=== PATIENT | female | born 1960 | race Caucasian/White ===

== ENCOUNTER 2018-06-27 11:31 | Outpatient (CLI) | payer OTHER ==
[2018-06-27 12:34] LABS: #Basophils 0.1 thou/uL (0.0-0.2); #Eosinphils 0.1 thou/uL (0.0-0.7); #Lymphocytes 3.2 thou/uL (1.20-3.40); #Monocytes 0.6 thou/uL (0.11-0.59); #Neutrophils 5.3 thou/uL (1.40-6.50); %Eosinophils 0.9 % (0.0-10.0); %Lymphocytes 34.8 % (21.0-51.0); %Monocytes 6.5 % (0.0-10.0); %Neutrophils 56.9 % (42.0-75.0); Hemoglobin 15.6 g/dL (12.0-16.0); Mean Corpuscular HGB CONC 32.9 g/dL (32.0-36.0); Mean Corpuscular Hemoglobin 32.4 pg (27.0-31.0); Mean Corpuscular Volume 98.6 fL (78.0-98.0); Mean Platelet Volume 7.1 fL (7.4-10.4); Platelet Count 320 thou/uL (130-400); RBC Distribution Width 11.7 % (11.5-14.5); White Blood Cell (WBC) Count 9.3 thou/uL (4.8-10.8)
[2018-06-27 12:57] LABS: ALT (SGPT) 14 U/L (8-55); AST (SGOT) 18 U/L (5-34); Albumin 4.8 g/dL (3.5-5.0); Alkaline Phosphatase 89 U/L (40-150); Anion Gap 16 mmol/L (10-20); BUN (Urea Nitrogen) 12 mg/dL (9.8-20.1); Bilirubin, Total 0.2 mg/dL (0.2-1.2); Calc. Creatinine Clearance 0 mL/min (70-130); Calcium 9.8 mg/dL (7.8-10.44); Carbon Dioxide 23 mmol/L (22-29); Chloride 100 mmol/L (98-107); Estimated GFR-MDRD 83; Globulin 2.9 g/dL (2.4-3.5); Glucose 94 mg/dL (70-105); Potassium 4.3 mmol/L (3.5-5.1); Protein, Total 7.7 g/dL (6.0-8.3); Sodium 135 mmol/L (136-145)
== END 2018-06-27 11:32 | disposition home or self-care (01) ==
LOC: LABBT 11:31
PROVIDERS: ATTEND Surgery
DX: Z01.818 Encounter for other preprocedural examination (principal); K41.90 Unilateral femoral hernia, without obstruction or gangrene, not specified as recurrent
CPT/HCPCS: 80053; 85025; 93005; 93010

== ENCOUNTER 2018-07-03 06:06 | Day surgery (SDC) | payer OTHER ==
[2018-06-27 12:00] VITALS: BMI 29.0
[2018-07-03] MEDS ORDERED: CEFAZOLIN/Water 2 GM/20 ML SYRINGE ONE (06:26)
[2018-07-03] MEDS ORDERED: Lidocaine 2% PF Inj 2 ML VIAL ONE (07:01)
[2018-07-03] MEDS ORDERED: Bupivacaine/Epinephrine 0.25% 30 ML VIAL ONE (07:01)
[2018-07-03] MEDS ORDERED: Fentanyl 100 MCG/2 ML VIAL ONE (07:16)
--- NOTE | 2018-07-03 08:42 | OP ---
PREOPERATIVE DIAGNOSIS: Left inguinal hernia. SURGEON: Piter Guo M.D. PROCEDURE PERFORMED: Left inguinal hernia repair with mesh. INDICATIONS: This is a 57-year-old female, who had a painful bulge in left groin. It appeared like a femoral hernia. FINDINGS: Actually was a left direct inguinal hernia at the pubic tubercle. PROCEDURE IN DETAIL: After informed consent was obtained, the patient was taken to the operating domenic m and given general endotracheal anesthesia. She was placed in the supine position. Her left groin was prepped and draped in usual fashion. Local anesthesia infiltrated subcutaneously and deep. A tr ansversing left groin incision was performed over the bulge. Subcu divided sharply. The hernia sac was dissected out. It initially appeared it was coming from the femoral canal, continued to dissect it out, and it turned out it was coming from the internal ring.
--- NOTE | 2018-07-03 08:51 | OP ---
DATE OF PROCEDURE: 07/03/2018 PREOPERATIVE DIAGNOSIS: Left femoral hernia. SURGEON: Piter Guo M.D. PROCEDURE PERFORMED: Left inguinal hernia repair with mesh. INDICATIONS: A 57-year-old female who had a left low groin bulge that appeared to be a femoral herni a that was causing pain. FINDINGS: She actually had a direct inguinal hernia at the pubic tubercle that the sac had prolapsed down towards the thigh. PROCEDURE: After informed consent was obtained, the patient was taken to the operating room, given g eneral mask anesthesia, placed in the supine position. Groin area was prepped and draped in usual fa shion. Transverse groin incision was performed. The subcu divided sharply. The hernia sac was foun d. This was then dissected down and it was coming through the external ring. The fascia was then op ened up and a direct hernia was found. This was circumscribed and reduced. Reduction maintained wit h a plug that was placed into the preperitoneal space, sutured in place with interrupted 2-0 Prolene suture. A patch was then placed over this and tucked under the external oblique fascia, sutured to t he pubic tubercle, then the external oblique fascia closed with a running 3-0 Vicryl. Hemostasis was assured. The wound irrigated. Subcutaneous reapproximated with interrupted 3-0 Vicryl. Skin close d with a running subcuticular 4-0 Rapide. Steri-Strips applied. Sterile bandage applied. The patie nt tolerated the procedure well and was transferred to recovery in good condition. Sponge and needle count verified correct x2.
[2018-07-03] MEDS ORDERED: HYDROcodone/Acetaminophen 5/325 mg Tablet ONE (09:08)
[2018-07-03] MEDS ORDERED: PROPOFOL 200 MG/20 ML VIAL ONE (10:40)
[2018-07-03] MEDS ORDERED: Glycopyrrolate 0.2 MG/ML 5 ML SYRINGE ONE (10:40)
[2018-07-03] MEDS ORDERED: Dexamethasone 20 MG/5 ML VIAL ONE (10:40)
[2018-07-03] MEDS ORDERED: Ondansetron HCl/PF 4 MG/2 ML Vial ONE (10:40)
[2018-07-03] MEDS ORDERED: Ketorolac Tromethamine 30 MG/ML VIAL ONE (10:40)
== END 2018-07-03 10:10 | disposition home or self-care (01) ==
LOC: SDC 06:06
PROVIDERS: ATTEND Surgery
PROC: 0YU80JZ Supplement Left Femoral Region with Synthetic Substitute, Open Approach (ICD-10-PCS; principal; 2018-07-03)
PROC: 0YU60JZ Supplement Left Inguinal Region with Synthetic Substitute, Open Approach (ICD-10-PCS; principal; 2018-07-03)
DX: K41.90 Unilateral femoral hernia, without obstruction or gangrene, not specified as recurrent (principal); K40.90 Unilateral inguinal hernia, without obstruction or gangrene, not specified as recurrent; I10 Essential (primary) hypertension; Z88.5 Allergy status to narcotic agent; Z91.013 Allergy to seafood; Z79.899 Other long term (current) drug therapy
CPT/HCPCS: C1781; J1100; J1885; J2405; J2704; J3010

== ENCOUNTER 2019-03-13 09:45 | Outpatient (CLI) | payer OTHER ==
--- NOTE | 2019-03-13 10:39 | MMO ---
Bilateral MAMMO Bilat Screen [facility]. CLINICAL HISTORY: Patient is 58 years old and is seen for screening. The patient has no family history of breast cancer. The patient has no personal history of cancer. VIEWS: The views performed were: bilateral craniocaudal with tomosynthesis and bilateral mediolateral oblique with tomosynthesis. MAMMOGRAM FINDINGS: There are scattered fibroglandular densities. There are no suspicious masses, suspicious calcifications, or new areas of architectural distortion. IMPRESSION: THERE IS NO MAMMOGRAPHIC EVIDENCE OF MALIGNANCY. A ROUTINE FOLLOW-UP MAMMOGRAM IN 1 YEAR IS RECOMMENDED. THE RESULTS OF THIS EXAM WERE SENT TO THE PATIENT. ACR BI-RADS Category 1 - Negative MAMMOGRAPHY NOTE: 1. A negative mammogram report should not delay a biopsy if a dominant of clinically suspicious mass is present. 2. Approximately 10% to 15% of breast cancers are not detected by mammography. 3. Adenosis and dense breasts may obscure an underlying neoplasm.
== END 2019-03-13 09:46 | disposition home or self-care (01) ==
LOC: BICMAMMO 09:45
PROVIDERS: ATTEND Nurse Practitioner Adult Health
DX: Z12.31 Encounter for screening mammogram for malignant neoplasm of breast (principal)
CPT/HCPCS: 77063; 77067

== ENCOUNTER 2020-08-31 10:19 | Observation (INO) | payer OTHER ==
[2020-08-31 11:39] LABS: #Basophils 0.1 thou/uL (0.0-0.2); #Lymphocytes 2.8 thou/uL (1.20-3.40); #Monocytes 0.6 thou/uL (0.11-0.59); #Neutrophils 7.6 thou/uL (1.40-6.50); %Basophils 0.9 % (0.0-1.0); %Eosinophils 0.3 % (0.0-10.0); %Lymphocytes 25.5 % (21.0-51.0); %Monocytes 5.3 % (0.0-10.0); Hemoglobin 15.1 g/dL (12.0-16.0); Mean Corpuscular HGB CONC 33.7 g/dL (32.0-36.0); Mean Corpuscular Hemoglobin 32.5 pg (27.0-31.0); Mean Corpuscular Volume 96.2 fL (78.0-98.0); Mean Platelet Volume 7.1 fL (7.4-10.4); Platelet Count 301 thou/uL (130-400); RBC Distribution Width 11.8 % (11.5-14.5); Red Blood Cell (RBC) Count 4.64 mill/uL (4.20-5.40); White Blood Cell (WBC) Count 11.1 thou/uL (4.8-10.8)
[2020-08-31 12:06] LABS: ALT (SGPT) 19 U/L (8-55); AST (SGOT) 19 U/L (5-34); Albumin 4.5 g/dL (3.4-4.8); Alkaline Phosphatase 95 U/L (40-110); Anion Gap 17 mmol/L (10-20); BUN (Urea Nitrogen) 4 mg/dL (9.8-20.1); Bilirubin, Total 0.2 mg/dL (0.2-1.2); Calc. Creatinine Clearance 0 mL/min (70-130); Calcium 9.6 mg/dL (7.8-10.44); Carbon Dioxide 29 mmol/L (23-31); Chloride 96 mmol/L (98-107); Globulin 3.2 g/dL (2.4-3.5); Glucose 100 mg/dL (80-115); Potassium 3.3 mmol/L (3.5-5.1); Protein, Total 7.7 g/dL (6.0-8.3); Sodium 139 mmol/L (136-145)
[2020-08-31] MEDS ORDERED: predniSONE 20 MG TAB ONE (12:37)
[2020-08-31] MEDS ORDERED: Nitroglycerin 0.4 MG TAB 1 EACH ONE (12:37)
[2020-08-31] MEDS ORDERED: Albuterol 200 PUFF (6.7GM INHALER) ONE (12:37)
[2020-08-31] MEDS ORDERED: Aspirin Chewable 81 MG TAB ONE (12:37)
--- NOTE | 2020-08-31 13:23 | RAD ---
AP CHEST: HISTORY: Chest pain and chest pressure. FINDINGS: Lungs are clear of infiltrate. No evidence of vascular congestion. Heart size is normal. IMPRESSION: No acute process. POS: AGW
--- NOTE | 2020-08-31 14:25 | PDOC.FPRHP ---
- History of Present Illness Chief Complaint: Chest tightness History of Present Illness: Patient is a 60 year old female with a history of HTN, HLD, CARI and hypothyroidism who presents to the ED with complains of chest tightness for the past 3 days. Reports URI symptoms including runny nose, ear fullness, and cough 1 week ago, now resolved. Denies chest pain. No headache, vision changes, SOB, nausea, sweating, abdominal pain, and edema. Reports intermittent SOB and wheezing. Has been using 's inhalers at home with resolution of SOB. Never felt similar symptoms previously. Never undergone stress test. + FHx for AK: son at 39, father at 60. ED Course: In ED, patient was afebrile. Given nitro and ASA. Noted to be wheezing on exam and given provent and prednisone 60mg. - Allergies/Adverse Reactions Allergies Allergy/AdvReac Type Severity Reaction Status Date / Time codeine Allergy Emesis Verified 06/27/18 12:01 shellfish derived Allergy Verified 06/27/18 12:01 - Home Medications Medication Instructions Recorded Confirmed Type Cyclobenzaprine [Flexeril] 10 mg PO TID PRN 06/27/18 08/31/20 History Hydrochlorothiazide 25 mg PO DAILY 06/27/18 08/31/20 History traZODone HCl [Trazodone HCl] 100 mg PO ASDIR PRN 06/27/18 08/31/20 History Albuterol Sulfate [Proventil Hfa] 2 puff INH Q4H PRN 08/31/20 08/31/20 History Aspirin 81 mg PO DAILY 08/31/20 08/31/20 History Clindamycin Phosphate [Clindamycin 1 applic TOP DAILY 08/31/20 08/31/20 History Phosphate 1% Gel] Fluocinonide [Fluocinonide 0.05% 1 applic TOP BID 08/31/20 08/31/20 History Cream] Levothyroxine Sodium [Euthyrox] 125 mcg PO DAILY 08/31/20 08/31/20 History Multivitamin 1 each PO DAILY 08/31/20 08/31/20 History Ubidecarenone [CoQ-10] 200 mg PO DAILY 08/31/20 08/31/20 History - History PMHx: HTN, HLD, CARI, hypothyroidism PSHx: Neck surgery, inguinal hernia FHx: [place] in father at 60, son at 39. Denies hx of HTN, DM. Social: Smokes 1.5-2 ppd since age 14. ETOH use socially. Denies drug use. - Review of Systems General: denies: fever/chills, fatigue Eyes: denies: eye pain, vision changes ENT: denies: nasal congestion, rhinorrhea Respiratory: denies: cough, shortness of breath Cardiovascular: denies: chest pain, palpitation, edema Gastrointestinal: denies: nausea, vomiting, abdominal pain Genitourinary: denies: dysuria, polyuria Skin: denies: rashes, jaundice Musculoskeletal: denies: pain, stiffness Neurological: denies: numbness, weakness Psychological: denies: anxiety, depression - Vital signs BP: [165/101] HR: [82] RR: [20] Tmax: [98.5F] Pox: [97]% on [RA] Wt: [74.661kg] - Physical Exam Constitutional: NAD, awake, alert and oriented HEENT: normocephalic and atraumatic, MMM Neck: FROM, trachea midline Chest: no-tender to palpation Heart: RRR, normal S1/S2, no edema Lungs: no respiratory distress, good air movement -Lungs: Expiratory wheezing heard throughout lung bases Abdomen: soft, non-tender, bowel sounds present Musculoskeletal: ROM grossly normal Neurological: no focal deficit Skin: no rash/lesions Heme/Lymphatic: no unusual bruising or bleeding Psychiatric: normal mood and affect FMR H&P: Results - Labs Result Diagrams: 08/31/20 11:23 08/31/20 11:23 Lab results: WBC 11.1 thou/uL (4.8-10.8) H 08/31/20 11:23 Hgb 15.1 g/dL (12.0-16.0) 08/31/20 11:23 Hct 44.7 % (36.0-47.0) 08/31/20 11:23 MCV 96.2 fL (78.0-98.0) 08/31/20 11:23 Plt Count 301 thou/uL (130-400) 08/31/20 11:23 Neutrophils % 68.0 % (42.0-75.0) 08/31/20 11:23 Sodium 139 mmol/L (136-145) 08/31/20 11:23 Potassium 3.3 mmol/L (3.5-5.1) L 08/31/20 11:23 Chloride 96 mmol/L (98-107) L 08/31/20 11:23 Carbon Dioxide 29 mmol/L (23-31) 08/31/20 11:23 BUN 4 mg/dL (9.8-20.1) L 08/31/20 11:23 Creatinine 0.65 mg/dL (0.6-1.1) 08/31/20 11:23 Glucose 100 mg/dL (80-115) 08/31/20 11:23 Calcium 9.6 mg/dL (7.8-10.44) 08/31/20 11:23 Total Bilirubin 0.2 mg/dL (0.2-1.2) 08/31/20 11:23 AST 19 U/L (5-34) 08/31/20 11:23 ALT 19 U/L (8-55) 08/31/20 11:23 Alkaline Phosphatase 95 U/L (40-110) 08/31/20 11:23 Serum Total Protein 7.7 g/dL (6.0-8.3) 08/31/20 11:23 Albumin 4.5 g/dL (3.4-4.8) 08/31/20 11:23 Lipase 14 U/L (8-78) 08/31/20 11:23 - EKG Interpretation EKG: EKG showed NSR FMR H&P: A/P - Plan Atypical chest pain Chest tightness could be cardiac vs. undiagnosed COPD. Trop < 0.01. EKG showed no ST segment changes. CXR negative. Given nitro and ASA in ED. -Heart score 4. -Admit to tele obs -Risk stratification labs of TSH, mag, lipid panel, A1C -EKG PRN for CP -NPO at midnight for stress test in am -Continue home ASA 81mg daily Wheezing Likely 2/2 undiagnosed COPD. CXR negative for consolidation. -Albuterol neb PRN -Outpatient PFTs to formally establish the diagnosis Tobacco use -Nicotine patch -Encourage cessation HTN HLD Hypothyroidism -Continue home meds PCP: Dr. Fuchs Code: FULL VTE ppx: SCDs Dispo: admit to tele obs. Expected LOS < 48 hours FMR H&P: Upper Level - Plan Date/Time: 08/31/20 1425 IKate, PGY2, have evaluated this patient and agree with findings/plan as outlined by materials intern resident. Pertinent changes/additions are listed here. 60 yo F w/ PMHx of HTN, HLD, hypothyroidism starting have chest pain 3 days ago. Pain is substernal and feels like a tightness. It does not radiate. She also has shortness of breath. She has been taking her 's inhalers which have helped some, but pain still would return. She is a long-time smoker since age 14, 1-2 ppd. Denies ever having this type of pain before. No N/V, diaphoresis. VS: BP: 165/101, MAP: 122, Pulse: 82, Resp: 23, Temp: 98.5 (Oral), Pain: 4, O2 sat: 97 on (Room Air), Time: 08/31/2020 11:07. PEx: Gen: NAD Lungs: wheezing diffusely, no rhonchi or rales, nonlabored breathing CV: RRR, no murmur Extremities: warm, well perfused, pulses 2+ b/l Psych: normal mood, congruent affect, good sense of humor A/P: ACS rule out Atypical chest pain - HEART of 4 - Will order TSH, Mg, Phos, A1C, and FLP to risk stratify - EKG NSR - continuous telemetry overnight - stress test in the AM. Wheezing Most likely 2/2 COPD - CXR normal with mildly hyperinflated lung justin in patient with heavy smoking history - could possibly be new onset COPD caused by allergies or mild URI - DuoNebs q4hr - prednisone may be continued along w/ azithromycin to empirically treat - Pt does not appear to have symptoms consistent w/ heart failure - recommend outpatient PFTs to formally establish the diagnosis HTN HLD Hypothyroidism - continue home meds - does not take any beta-blockers History of heavy tobacco use - encourage cessation Code: FULL VTE ppx: SCDs, low risk GI ppx: none IVF: none Dispo: tele, obs. NPO at midnight for stress test in the AM. Addendum - Attending - Attending Attestation Date/Time: 08/31/20 869 I personally evaluated the patient and discussed the management with Dr. Fransisco james/Arron. H&P repeated by me. I agree with the History, Examination, Assessment and Plan documented above with any addition or exceptions noted below. CP R/O AK- multiple cardiac risk factors including tobacco abuse, fam hx, h/o HTN and HLD- stress test in am. Tobacco abuse- counseling Concern for undiagnosed COPD- prn albuterol and f/u for PFTs.
[2020-08-31 14:31] LABS: Troponin I 0.012 ng/mL (< 0.028)
[2020-08-31] MEDS ORDERED: Ondansetron ODT 4 MG TAB PO PRN (14:31)
[2020-08-31] MEDS ORDERED: Ondansetron PF 4 MG/2 ML Vial IVP PRN (14:31)
[2020-08-31] MEDS ORDERED: Nitroglycerin 0.4 MG TAB (25 Tab Bottle) SL PRN (14:31)
[2020-08-31] MEDS ORDERED: Acetaminophen 325 MG TAB PO PRN (14:31)
[2020-08-31] MEDS ORDERED: Nicotine 21 MG PATCH TD SCH (14:45)
[2020-08-31] MEDS ORDERED: traZODone HCl 50 MG TAB PO PRN (14:52)
[2020-08-31 15:06] LABS: Hemoglobin A1c 5.5 % (4.0-6.0)
[2020-08-31] MEDS ORDERED: Albuterol Sulfate 1.25 MG/3 ML NEB NEB PRN (16:23)
[2020-08-31 17:27] VITALS: BMI 30.1
[2020-08-31 18:20] LABS: Troponin I Less than 0.010 ng/mL (< 0.028)
[2020-08-31] MEDS ORDERED: Potassium Chloride 20 MEQ TAB PO SCH (20:00)
[2020-08-31 22:34] LABS: SARS-CoV-2 MS2 Positive; SARS-CoV-2 N Gene Negative; SARS-CoV-2 S Gene Negative; SARS-CoV-2 by NAA Not Detected (NotDetected); SARS-CoV-2 orf1ab Negative
[2020-09-01] MEDS ORDERED: Levothyroxine Sodium 125 MCG TAB PO SCH (06:00)
--- NOTE | 2020-09-01 06:04 | PDOC.FM ---
- Subjective Subjective: Patient is resting comfortably in bed. No events overnight. Reports that her chest pain is almost completely resolved. She states her shortness of breath is improved as well. Notes that when she lays down her shortness of breath gets worse. States that when she is active it gets worse as well. Denies fever/chills, cough. - Objective MAR Reviewed: Yes Vital Signs & Weight: Vital Signs (12 hours) Temp Pulse Resp BP Pulse Ox 09/01/20 04:00 98.2 F 90 140/84 93 L 08/31/20 20:00 97.8 F 90 20 155/87 H 93 L Weight Weight 74.661 kg I&O: 08/30/20 08/31/20 09/01/20 06:59 06:59 06:59 Intake Total 1440 Balance 1440 Result Diagrams: 08/31/20 11:23 08/31/20 11:23 Phys Exam - Physical Examination Constitutional: NAD HEENT: PERRLA, moist MMs expiratory wheeze throughout lung bases Cardiovascular: RRR, no significant murmur no chest wall TTP Gastrointestinal: soft, non-tender, positive bowel sounds Musculoskeletal: no edema Neurological: non-focal, moves all 4 limbs Psychiatric: normal affect, A&O x 3 Skin: no rash Dx/Plan - Plan Plan: Atypical chest pain, R/o ACS Chest tightness likely 2/2 new onset COPD with mild exacerbation EKG showed no ST segment changes. CXR negative. Given nitro and ASA in ED. Heart score 4. Trops neg x3 TSH 1.2, a1c 5.5, Chest tightness improved with duonebs -pending mag, lipid panel -stress test this am -Continue home ASA 81mg daily Wheezing Most likely 2/2 COPD CXR normal with mildly hyperinflated lung justin in patient with heavy smoking history Could possibly be new onset COPD caused by allergies, reported post nasal drip x 1 week CHF unlikely, patient does report orthopnea, but no edema, stress will show EF - DuoNebs q4hr - Continue prednisone for 5 day total course - recommend outpatient PFTs to formally establish the diagnosis Tobacco use -Nicotine patch -Encourage cessation HTN - continue home meds HLD - continue home meds Hypothyroidism -Continue home meds PCP: Dr. Fuchs Code: FULL VTE ppx: SCDs Dispo: admit to tele obs. Expected LOS < 48 hours Addendum - Attending - Attending Attestation Date/Time: 09/01/20 1406 I personally evaluated the patient and discussed the management with Dr. Parekh. I agree with the History, Examination, Assessment and Plan documented above with any addition or exceptions noted below. Patient here for suspected COPD with mild exacerbation and chest pain. She underwent stress testing this morning. Continue treatment for COPD. Hopeful d/c with normal stress test later today.
[2020-09-01] MEDS ORDERED: predniSONE 20 MG TAB PO SCH (09:00)
[2020-09-01] MEDS ORDERED: Enoxaparin Sodium 40 MG/0.4 ML SYRINGE SC SCH (09:00)
[2020-09-01] MEDS ORDERED: Hydrochlorothiazide 25 MG TAB PO SCH (09:00)
[2020-09-01] MEDS ORDERED: Aspirin 81 mg Enteric Coated Tablet PO SCH (09:00)
[2020-09-01 10:47] VITALS: BP 167/87; TEMP 98.2
--- NOTE | 2020-09-01 10:47 | NM ---
EXAM: CARDIAC SPECT HISTORY: Chest pain, acute coronary syndrome, hypertension, dyslipidemia, smoker TECHNIQUE: A myocardial perfusion scan was performed using the single isotope 1 day protocol with lorraine hnetium 99m sestamibi. [10 mCi] was injected intravenously for the rest exam followed by 30 mCi for the stress study. Pharmacologic stress with Lexiscan was monitored and interpreted by JUANA [place] FINDINGS: There is a small fixed defect in the distal anteroseptal wall. No reversible defects are se en. Gated SPECT LVEF: 77% Wall motion exam: Normal IMPRESSION: No evidence of reversible ischemia
[2020-09-01] MEDS ORDERED: Regadenoson 0.4 MG/5 ML SYRINGE ONE (11:33)
[2020-09-01 12:10] LABS: Anion Gap 15 mmol/L (10-20); BUN (Urea Nitrogen) 12 mg/dL (9.8-20.1); Calc. Creatinine Clearance 100 mL/min (70-130); Calcium 9.6 mg/dL (7.8-10.44); Carbon Dioxide 29 mmol/L (23-31); Cardiac Risk 4.1 (Less than 4.5); Chloride 100 mmol/L (98-107); Cholesterol 241 mg/dl (< 200 Desired); Glucose 112 mg/dL (80-115); HDL Cholesterol 59 mg/dL (>60 Neg Risk); LDL Cholesterol, Calculated 132 mg/dL; Magnesium 1.9 mg/dL (1.6-2.6); Potassium 3.8 mmol/L (3.5-5.1); Sodium 140 mmol/L (136-145); Triglycerides 251 mg/dL (Less than 150)
[2020-09-02] MEDS ORDERED: predniSONE 20 MG TAB PO SCH (08:00)
--- NOTE | 2020-09-02 13:23 | DIS ---
DATE OF ADMISSION: 08/31/2020 DATE OF DISCHARGE: 09/01/2020 DISCHARGE ATTENDING: Zach Carrillo MD CONSULTS: None. PROCEDURES: Stress test nuclear medicine. Impression: No evidence of reversible ischemia. EF 77%. PRIMARY DIAGNOSIS: Atypical chest pain, suspected due to new-onset chronic obstructive pulmonary disease with mild exacerbation. SECONDARY DIAGNOSES: Tobacco use, hypertension, hyperlipidemia, hypothyroidism. DISCHARGE MEDICATIONS: 1. Symbicort 10.2 g inhaled daily for 30 days. 2. Atorvastatin 40 mg p.o. daily for 30 days. 3. Prednisone 40 mg p.o. q.a.m. with meals for 3 days. 4. Albuterol 2 puffs inhaled q.4 hours p.r.n. 5. Aspirin 81 mg p.o. daily. 6. Clindamycin one application topical daily. 7. Flexeril 10 mg p.o. t.i.d. 8. Fluocinonide one application topical b.i.d. 9. Hydrochlorothiazide 25 mg p.o. daily. 10. Levothyroxine sodium 125 mcg p.o. daily. 11. Multivitamin one each p.o. daily. 12. Trazodone 100 mg p.o. as directed. 13. Ubidecarenone 200 mg p.o. daily. DISCONTINUED MEDICATIONS: None. HISTORY OF PRESENT ILLNESS/HOSPITAL COURSE: A 60-year-old female, presented to the ED with chest tightness for the past three days and URI symptoms, no chest pain, intermittent shortness of breath and wheezing. Had been using 's inhaler at home, which had helped resolve her shortness of breath. Positive family history for RI, son at 39, father at 60. Given nitroglycerin and aspirin in the ED. Wheezing on exam. Chest x-ray normal with mildly hyperinflated lung justin. The patient has a heavy smoking history. EKG showed no ST changes. Chest tightness improved with DuoNeb. The patient was started on prednisone. Had a stress test that was normal, showed no ischemia, and the patient was discharged in stable condition with recommended outpatient followup for PFTs and lung cancer screening. DISPOSITION: Stable. DISCHARGE INSTRUCTIONS: 1. Location: Home. 2. Diet: Regular. 3. Activity: Ad jeremie. 4. Follow up with your primary care physician in 7 to 14 days. Job ID: [id number]
== END 2020-09-01 13:45 | disposition home or self-care (01) ==
LOC: ERS 10:19 → ERHOLD 13:12 → 2NO 17:38
PROVIDERS: ADMIT Family Medicine; ATTEND Family Medicine
DX: R07.89 Other chest pain (principal); R06.2 Wheezing; I10 Essential (primary) hypertension; E78.5 Hyperlipidemia, unspecified; E03.9 Hypothyroidism, unspecified; F41.1 Generalized anxiety disorder; F17.210 Nicotine dependence, cigarettes, uncomplicated; Z79.82 Long term (current) use of aspirin; Z79.899 Other long term (current) drug therapy; Z88.5 Allergy status to narcotic agent; Z91.013 Allergy to seafood; Z20.828 Contact with and (suspected) exposure to other viral communicable diseases
CPT/HCPCS: 36415; 71045; 78452; 80048; 80053; 80061; 83036; 83690; 83735; 84443; 84484; 85025; 85379; 87635; 93005; 93017; 94760; A9500; G0378; J2785; J7512; U0003

== ENCOUNTER 2022-05-25 12:16 | Outpatient (CLI) | payer OTHER | END 2022-05-25 12:17 | disposition home or self-care (01) | LOC: BICMAMMO 12:16 | PROVIDERS: ATTEND Family Medicine | DX: Z12.31 Encounter for screening mammogram for malignant neoplasm of breast (principal) | CPT/HCPCS: 77063; 77067 ==

== ENCOUNTER 2022-07-19 11:24 | Inpatient (IN) | payer OTHER ==
[2022-07-19 12:10] LABS: #Eosinphils 0.1 thou/uL (0.0-0.7); #Lymphocytes 2.7 thou/uL (1.20-3.40); #Monocytes 0.7 thou/uL (0.11-0.59); #Neutrophils 9.1 thou/uL (1.40-6.50); %Basophils 0.2 % (0.0-1.0); %Eosinophils 0.6 % (0.0-10.0); %Lymphocytes 21.6 % (21.0-51.0); %Monocytes 5.8 % (0.0-10.0); %Neutrophils 71.9 % (42.0-75.0); Hemoglobin 15.5 g/dL (12.0-16.0); Mean Corpuscular HGB CONC 32.5 g/dL (32.0-36.0); Mean Corpuscular Hemoglobin 32.2 pg (27.0-31.0); Mean Corpuscular Volume 99.2 fL (78.0-98.0); Mean Platelet Volume 7.6 fL (7.4-10.4); Platelet Count 289 thou/uL (130-400); RBC Distribution Width 11.6 % (11.5-14.5); Red Blood Cell (RBC) Count 4.83 mill/uL (4.20-5.40); White Blood Cell (WBC) Count 12.6 thou/uL (4.8-10.8)
[2022-07-19 12:37] LABS: ALT (SGPT) 23 U/L (8-55); AST (SGOT) 22 U/L (5-34); Albumin 4.5 g/dL (3.4-4.8); Alkaline Phosphatase 99 U/L (40-110); Anion Gap 14 mmol/L (10-20); BUN (Urea Nitrogen) 10 mg/dL (9.8-20.1); Bilirubin, Total 0.2 mg/dL (0.2-1.2); Calc. Creatinine Clearance 0 mL/min (70-130); Carbon Dioxide 31 mmol/L (23-31); Chloride 98 mmol/L (98-107); Estimated GFR 92; Glucose 113 mg/dL (80-115); Potassium 3.9 mmol/L (3.5-5.1); Protein, Total 7.5 g/dL (5.8-8.1); Sodium 139 mmol/L (136-145)
[2022-07-19] MEDS ORDERED: Albuterol Sulfate 2.5 mg/3 ml Neb ONE (13:14)
[2022-07-19] MEDS ORDERED: Aspirin 325 MG TAB ONE (13:18)
[2022-07-19] MEDS ORDERED: Diazepam 10 MG/2 ML SYRINGE IVP SCH (18:09)
[2022-07-19] MEDS ORDERED: Lorazepam 2 MG/ML VIAL IM PRN (18:13)
[2022-07-19] MEDS ORDERED: Ondansetron ODT 4 MG TAB PO PRN (18:13)
[2022-07-19] MEDS ORDERED: Diazepam 5 MG TAB PO PRN (18:43)
[2022-07-19] MEDS ORDERED: Folic Acid 1 MG TAB PO SCH (18:45)
[2022-07-19] MEDS ORDERED: Multivit, Therapeutic 1 TAB PO SCH (18:45)
[2022-07-19] MEDS: Nicotine 21 MG PATCH TD SCH (20:54)
[2022-07-19] MEDS: Thiamine HCl 200 MG/2 ML VIAL SLOW IVP SCH (20:54)
[2022-07-20 02:53] VITALS: BMI 31.6
[2022-07-20 05:21] LABS: Hemoglobin A1c 5.6 % (4.0-6.0)
[2022-07-20 05:24] LABS: #Eosinphils 0.1 thou/uL (0.0-0.7); #Lymphocytes 2.9 thou/uL (1.20-3.40); #Monocytes 0.8 thou/uL (0.11-0.59); #Neutrophils 7.3 thou/uL (1.40-6.50); %Basophils 0.4 % (0.0-1.0); %Eosinophils 1.1 % (0.0-10.0); %Lymphocytes 26.3 % (21.0-51.0); %Neutrophils 65.3 % (42.0-75.0); Hemoglobin 14.3 g/dL (12.0-16.0); Mean Corpuscular HGB CONC 32.5 g/dL (32.0-36.0); Mean Corpuscular Hemoglobin 32.4 pg (27.0-31.0); Mean Corpuscular Volume 99.5 fl (78.0-98.0); Mean Platelet Volume 7.7 fL (7.4-10.4); Platelet Count 270 thou/uL (130-400); RBC Distribution Width 11.6 % (11.5-14.5); Red Blood Cell (RBC) Count 4.41 mill/uL (4.20-5.40); White Blood Cell (WBC) Count 11.2 thou/uL (4.8-10.8)
[2022-07-20 05:42] LABS: Anion Gap 13 mmol/L (10-20); BUN (Urea Nitrogen) 10 mg/dL (9.8-20.1); Calc. Creatinine Clearance 121 mL/min (70-130); Calcium 9.5 mg/dL (7.8-10.44); Carbon Dioxide 31 mmol/L (23-31); Cardiac Risk 5.4 (Less than 4.5); Chloride 99 mmol/L (98-107); Cholesterol 244 mg/dl (< 200 Desired); Estimated GFR 101; Glucose 102 mg/dL (80-115); HDL Cholesterol 45 mg/dL (>60 Neg Risk); LDL Cholesterol, Calculated 156 mg/dL; Potassium 3.9 mmol/L (3.5-5.1); Sodium 139 mmol/L (136-145); Triglycerides 213 mg/dL (Less than 150)
[2022-07-20] MEDS: Multivit, Therapeutic 1 TAB PO SCH (07:57)
[2022-07-20] MEDS: Thiamine HCl 200 MG/2 ML VIAL SLOW IVP SCH (07:58)
[2022-07-20] MEDS: Aspirin 81 mg Enteric Coated Tablet PO SCH (07:58)
[2022-07-20] MEDS: Folic Acid 1 MG TAB PO SCH (07:58)
[2022-07-20] MEDS: Fluticasone Propionate Nasal Spray 16 gm Bottle NASAL SCH (09:08)
[2022-07-20] MEDS: Nicotine 21 MG PATCH TD SCH (10:55)
[2022-07-20] MEDS ORDERED: Polyethylene Glycol 3350 17 GM Packet PO PRN (17:49)
[2022-07-20] MEDS ORDERED: Benzonatate 100 MG CAP PO PRN (21:29)
[2022-07-20] MEDS: Acetaminophen 325 MG TAB PO PRN (23:13)
[2022-07-21 05:21] LABS: #Eosinphils 0.1 thou/uL (0.0-0.7); #Lymphocytes 2.8 thou/uL (1.20-3.40); #Monocytes 0.7 thou/uL (0.11-0.59); #Neutrophils 5.1 thou/uL (1.40-6.50); %Basophils 0.5 % (0.0-1.0); %Eosinophils 1.5 % (0.0-10.0); %Lymphocytes 31.6 % (21.0-51.0); %Monocytes 8.5 % (0.0-10.0); Hemoglobin 14.2 g/dL (12.0-16.0); Mean Corpuscular HGB CONC 33.4 g/dL (32.0-36.0); Mean Corpuscular Hemoglobin 33.5 pg (27.0-31.0); Mean Platelet Volume 7.3 fL (7.4-10.4); Platelet Count 250 thou/uL (130-400); RBC Distribution Width 11.5 % (11.5-14.5); Red Blood Cell (RBC) Count 4.24 mill/uL (4.20-5.40); White Blood Cell (WBC) Count 8.8 thou/uL (4.8-10.8)
[2022-07-21 06:50] LABS: Anion Gap 12 mmol/L (10-20); BUN (Urea Nitrogen) 11 mg/dL (9.8-20.1); Calc. Creatinine Clearance 117 mL/min (70-130); Carbon Dioxide 31 mmol/L (23-31); Chloride 99 mmol/L (98-107); Estimated GFR 100; Glucose 103 mg/dL (80-115); Potassium 3.7 mmol/L (3.5-5.1); Sodium 138 mmol/L (136-145)
[2022-07-21] MEDS ORDERED: Multivit, Therapeutic 1 TAB PO SCH (09:00)
[2022-07-21] MEDS ORDERED: Aspirin Chewable 81 MG TAB PO SCH (09:00)
[2022-07-21] MEDS: Aspirin 81 mg Enteric Coated Tablet PO SCH (09:06)
[2022-07-21] MEDS: Hydrochlorothiazide 25 MG TAB PO SCH (09:06)
[2022-07-21] MEDS: Folic Acid 1 MG TAB PO SCH (09:06)
[2022-07-21] MEDS: Fluticasone Propionate Nasal Spray 16 gm Bottle NASAL SCH (09:07)
[2022-07-21] MEDS: Multivit, Therapeutic 1 TAB PO SCH (09:07)
[2022-07-21] MEDS: Betamethasone 0.1% Cream 15 GM TUBE TOP SCH ×2 (09:18→22:24)
[2022-07-21] MEDS: Ezetimibe 10 MG TAB PO SCH (09:18)
[2022-07-21] MEDS: Nicotine 21 MG PATCH TD SCH (10:40)
[2022-07-21] MEDS: Thiamine HCl 200 MG/2 ML VIAL SLOW IVP SCH (17:26)
[2022-07-21] MEDS: Acetaminophen 325 MG TAB PO PRN (18:30)
[2022-07-21] MEDS: traZODone HCl 50 MG TAB PO PRN (22:25)
[2022-07-22 05:29] LABS: Anion Gap 12 mmol/L (10-20); BUN (Urea Nitrogen) 12 mg/dL (9.8-20.1); Calc. Creatinine Clearance 121 mL/min (70-130); Carbon Dioxide 31 mmol/L (23-31); Chloride 98 mmol/L (98-107); Estimated GFR 101; Glucose 104 mg/dL (80-115); Potassium 3.5 mmol/L (3.5-5.1); Sodium 137 mmol/L (136-145)
[2022-07-22 05:30] LABS: #Eosinphils 0.1 thou/uL (0.0-0.7); #Lymphocytes 2.9 thou/uL (1.20-3.40); #Monocytes 0.6 thou/uL (0.11-0.59); #Neutrophils 4.3 thou/uL (1.40-6.50); %Basophils 0.4 % (0.0-1.0); %Eosinophils 1.5 % (0.0-10.0); %Lymphocytes 36.1 % (21.0-51.0); %Monocytes 7.9 % (0.0-10.0); %Neutrophils 54.1 % (42.0-75.0); Hemoglobin 14.4 g/dL (12.0-16.0); Mean Corpuscular HGB CONC 32.5 g/dL (32.0-36.0); Mean Corpuscular Hemoglobin 32.9 pg (27.0-31.0); Mean Platelet Volume 7.5 fL (7.4-10.4); Platelet Count 243 thou/uL (130-400); RBC Distribution Width 11.5 % (11.5-14.5); Red Blood Cell (RBC) Count 4.39 mill/uL (4.20-5.40); White Blood Cell (WBC) Count 7.9 thou/uL (4.8-10.8)
[2022-07-22] MEDS: Levothyroxine Sodium 125 MCG TAB PO SCH (06:31)
[2022-07-22] MEDS: Aspirin 81 mg Enteric Coated Tablet PO SCH (09:52)
[2022-07-22] MEDS: Betamethasone 0.1% Cream 15 GM TUBE TOP SCH ×2 (09:52→20:59)
[2022-07-22] MEDS: Ezetimibe 10 MG TAB PO SCH (09:53)
[2022-07-22] MEDS: Fluticasone Propionate Nasal Spray 16 gm Bottle NASAL SCH (09:53)
[2022-07-22] MEDS: Hydrochlorothiazide 25 MG TAB PO SCH (09:53)
[2022-07-22] MEDS: Thiamine 100 MG TAB PO SCH (09:53)
[2022-07-22] MEDS: Multivit, Therapeutic 1 TAB PO SCH (09:53)
[2022-07-22] MEDS: Folic Acid 1 MG TAB PO SCH (09:53)
[2022-07-22] MEDS: Nicotine 21 MG PATCH TD SCH (18:01)
[2022-07-22] MEDS: Acetaminophen 325 MG TAB PO PRN (20:58)
[2022-07-22] MEDS: traZODone HCl 50 MG TAB PO PRN (20:59)
[2022-07-23] MEDS: Levothyroxine Sodium 125 MCG TAB PO SCH (05:54)
[2022-07-23] MEDS: Fluticasone Propionate Nasal Spray 16 gm Bottle NASAL SCH (08:19)
[2022-07-23] MEDS: Betamethasone 0.1% Cream 15 GM TUBE TOP SCH (08:19)
[2022-07-23] MEDS: Aspirin 81 mg Enteric Coated Tablet PO SCH (08:20)
[2022-07-23] MEDS: Folic Acid 1 MG TAB PO SCH (08:22)
[2022-07-23] MEDS: Hydrochlorothiazide 25 MG TAB PO SCH (08:22)
[2022-07-23] MEDS: Multivit, Therapeutic 1 TAB PO SCH (08:22)
[2022-07-23] MEDS: Ezetimibe 10 MG TAB PO SCH (08:22)
[2022-07-23] MEDS: Thiamine 100 MG TAB PO SCH (08:23)
[2022-07-23] MEDS ORDERED: Oxybutynin ER 5 MG TAB PO SCH (09:00)
[2022-07-23 16:34] VITALS: BP 148/86; TEMP 97.6
[2022-07-23] MEDS: Nicotine 21 MG PATCH TD SCH (18:01)
== END 2022-07-23 19:40 | DRG 65 ==
LOC: ERS 11:24 → ERHOLD 14:22 → NEURO 19:33 → OBSVTOIN 07-20 11:31
PROVIDERS: ADMIT Family Medicine; ATTEND Family Medicine
DX: I63.9 Cerebral infarction, unspecified (principal); G81.91 Hemiplegia, unspecified affecting right dominant side; E03.9 Hypothyroidism, unspecified; I10 Essential (primary) hypertension; E78.5 Hyperlipidemia, unspecified; F41.9 Anxiety disorder, unspecified; F17.210 Nicotine dependence, cigarettes, uncomplicated; F10.90 Alcohol use, unspecified, uncomplicated; Z20.822 Contact with and (suspected) exposure to COVID-19; Z88.5 Allergy status to narcotic agent; Z91.013 Allergy to seafood; Z79.82 Long term (current) use of aspirin; Z79.51 Long term (current) use of inhaled steroids; Z79.899 Other long term (current) drug therapy; Z98.890 Other specified postprocedural states
CPT/HCPCS: 36415; 70450; 70551; 71045; 80048; 80053; 80061; 83036; 84443; 84484; 85025; 87804; 93005; 93306; 93880; 94640; 96374; 96376; G0378; J3411; J7611; J7620; Q0162; U0003; U0005

== ENCOUNTER → 2023-01-06 | Day surgery (SDC) | payer OTHER ==
[~2023-01-06] MED LIST: EPINEPHrine 1 MG/ML AMP FS ONE; Gadobenate 529 MG/ML (10ML SDV) IV ONE; IOPAMIDOL FS ONE; Lidocaine 1% PF 5 ML VIAL FS ONE; Magnevist 469MG/ML 20 ML VIAL ONE
== END | disposition home or self-care (01) ==
LOC: RAD 07:13
PROVIDERS: ATTEND Family Medicine
PROC: BQ30YZZ Magnetic Resonance Imaging (MRI) of Right Hip using Other Contrast (ICD-10-PCS; principal; 2023-01-06)
DX: S73.004A Unspecified dislocation of right hip, initial encounter (principal); M16.11 Unilateral primary osteoarthritis, right hip; M41.9 Scoliosis, unspecified; K57.30 Diverticulosis of large intestine without perforation or abscess without bleeding; S73.191A Other sprain of right hip, initial encounter; Z88.5 Allergy status to narcotic agent; Z91.013 Allergy to seafood; X58.XXXA Exposure to other specified factors, initial encounter
CPT/HCPCS: 27093; A9577; A9579; J0171; J7050

== ENCOUNTER 2024-04-13 09:20 | Emergency (ER) | payer MEDICARE, OTHER | END 2024-04-13 11:08 | disposition home or self-care (01) | LOC: ERS 09:20 | DX: S29.012A Strain of muscle and tendon of back wall of thorax, initial encounter (principal); I10 Essential (primary) hypertension; F17.210 Nicotine dependence, cigarettes, uncomplicated; E03.9 Hypothyroidism, unspecified; X50.0XXA Overexertion from strenuous movement or load, initial encounter; Y93.89 Activity, other specified; Y92.096 Garden or yard of other non-institutional residence as the place of occurrence of the external cause; Z86.73 Personal history of transient ischemic attack (TIA), and cerebral infarction without residual deficits; Z79.899 Other long term (current) drug therapy | CPT/HCPCS: 72072; 96372; J1885 ==

== ENCOUNTER 2025-05-02 12:22 | Emergency (ER) | payer MEDICARE, OTHER ==
[2025-05-02] MEDS ORDERED: Acetaminophen 500 MG TAB ONE (12:46)
[2025-05-02 13:18] LABS: #Basophils 0.04 10x3/uL (0.0-0.2); #Eosinophils 0.03 10x3/uL (0.0-0.7); #Monocytes 0.77 10x3/uL (0.11-0.59); #Neutrophils 6.96 10x3/uL (1.40-6.50); %Basophils 0.4 % (0.0-1.0); %Eosinophils 0.3 % (0.0-10.0); %Lymphocytes 25.9 % (21.0-51.0); %Monocytes 7.3 % (0.0-10.0); %Neutrophils 65.8 % (42.0-75.0); Hematocrit 48.9 % (36.0-47.0); Hemoglobin 16.3 g/dL (12.0-16.0); Mean Corpuscular Hemoglobin 32.0 pg (27.0-31.0); Mean Corpuscular Volume 96.1 fL (78.0-98.0); Platelet Count 274 10x3/uL (130-400); Red Blood Cell (RBC) Count 5.09 mill/uL (4.20-5.40); White Blood Cell (WBC) Count 10.56 10x3/uL (4.8-10.8)
[2025-05-02 13:41] LABS: Troponin I Less than 0.010 ng/mL (< 0.028)
[2025-05-02 13:44] LABS: ALT (SGPT) 16 U/L (Less than 34); AST (SGOT) 26 U/L (11-34); Albumin 4.7 g/dL (3.1-4.5); Alkaline Phosphatase 106 U/L (40-110); Anion Gap 17 mmol/L (10-20); BUN (Urea Nitrogen) 10 mg/dL (9.8-20.1); Bilirubin, Total 0.4 mg/dL (0.3-1.2); Calc. Creatinine Clearance 0 mL/min (70-130); Calcium 9.9 mg/dL (7.8-10.44); Carbon Dioxide 28 mmol/L (23-31); Chloride 98 mmol/L (98-107); Globulin 3.4 g/dL (2.4-3.5); Glucose 96 mg/dL (80-115); Magnesium 2.0 mg/dL (1.6-2.6); Potassium 3.7 mmol/L (3.5-5.1); Sodium 139 mmol/L (136-145)
== END 2025-05-02 15:21 | disposition home or self-care (01) ==
LOC: ERS 12:22
DX: I10 Essential (primary) hypertension (principal); R51.9 Headache, unspecified; E03.9 Hypothyroidism, unspecified; F17.210 Nicotine dependence, cigarettes, uncomplicated; Z55.6 Problems related to health literacy; Z79.82 Long term (current) use of aspirin; Z79.899 Other long term (current) drug therapy
CPT/HCPCS: 80053; 83735; 83880; 84484; 85025; 93005